=== PATIENT | female | born 1985 | race Caucasian/White ===

== ENCOUNTER 2016-06-30 10:21 | Emergency (ER) | payer OTHER ==
--- NOTE | 2016-06-30 15:07 | DIAGNOSTIC IMAGING REPORT ---
PROCEDURE: CT ABD/PELVIS WITH CONTRAST INDICATION: Left abdominal pain. Rectal bleeding. TECHNIQUE: 100 ml of Isovue 300 were injected intravenously and axial images were obtained of the entire abdomen and pelvis with sagittal and coronal reformations. COMPARISON: None. FINDINGS: ABDOMEN: Gallbladder, liver, spleen, pancreas, kidneys, and aorta are normal. Appendix is not clearly identified, but no evidence of inflammatory process. PELVIS: Uterus and adnexal structures are normal. No evidence of free fluid. IMPRESSION: 1. Negative CT abdomen and pelvis. 2. Findings discussed with Dr. Gildardo Rae. All CT scans at this facility use dose modulation, iterative reconstruction, and/or weight-based dosing when appropriate to reduce radiation dose to as low as reasonably achievable.
--- NOTE | 2016-06-30 15:55 | ED NURSING NOTES ---
Clinical Report - Nurses [facility] [address] [place] [address] 06/30/2016 10:29 Patient: FLACA SAUCEDO TRIAGE Acuity: LEVEL 3. Chief Complaint: BLOODY STOOLS and HEMATURIA. Alert. No acute distress. RICHARD COMA SCORE: Richard Coma Scale: 15- eyes open spontaneously (4); best verbal response- oriented x 4 (5); best motor response- obeys commands (6). --10:47 Gisell Lopez R.N. 10:38 06/30/16. BP: 126/73. HR: 102. RR: 12. O2 saturation: 100%. Temp: 98.4 F (oral). Pain level now: 12/16. --10:47 Giesll Lopez R.N. Weight: 48 kg stated. Height/Length: 61 inches Per Patient. BMI: 20. --10:47 Gisell Lopez R.N. Medications Zoloft Oral. --10:45 Gisell Lopez R.N. Medication/allergy information source: the patient. --10:47 Gisell Lopez R.N. Allergies No Known Drug Allergy. --10:45 Gisell Lopez R.N. History Arrived by private vehicle. Historian: patient. Unaccompanied. Onset. (2 weeks ago). ( Pt reports loose and bloody stools. She reports she saw a GI Dr 4 days and has a colonoscopy scheduled.). PAST MEDICAL HX: Last normal menstrual period was 2 weeks ago. Sexual history - sexually active. SOCIAL HX: Heavy tobacco smoker (cigarette)- 1 pack per day. Occasional alcohol use. No drug use. FALL RISK ASSESSMENT: Fall risk assessment completed. No fall risk identified. NUTRITIONAL RISK ASSESSMENT: The nutritional risk assessment revealed no deficiencies. FUNCTIONAL ASSESSMENT: Functional assessment: no impairments noted. LEARNING NEEDS ASSESSMENT: The learning needs assessment revealed no barriers. SKIN INTEGRITY ASSESSMENT: Skin integrity risk assessment completed. No skin integrity risk identified. --10:47 Gisell Lopez R.N. PROBLEMS: Depression. --10:46 Gisell Lopez R.N. ADDITIONAL SURGERIES: Cyst removal. Dilatation & Curettage. Tonsillectomy. Tubal Ligation. --10:46 Gisell Lopez R.N. Assessment GENERAL / NEURO / PSYCH: Alert. Oriented X 4. Appears in no acute distress. Patient appears calm and cooperative. RESPIRATORY: Respirations not labored. CVS: Capillary refill less than 2 seconds. GI / : Abdomen soft. SKIN: Mucous membranes are pink. Skin is warm and dry. --10:47 Gisell Lopez R.N. Interventions ID band on patient. To treatment room. --10:47 Gisell Lopez R.N. PHYSICAL ASSESSMENT 10:39 06/30/16. Ambulatory to room. GENERAL / NEURO / PSYCH: Alert. Oriented X 4. Appears in no acute distress. HEENT: Pupils equal, round and reactive to light. No facial asymmetry noted. Mucous membranes are pink. RESPIRATORY: Respirations not labored. CVS: Capillary refill less than 2 seconds. Pulses within normal limits. GI / : Abdomen soft. SKIN: Skin intact. Skin is warm and dry. Normal skin turgor. --10:39 Gisell Lopez R.N. NURSING PROGRESS NOTES 10:39 06/30/16. Patient gowned. Two patient identifiers checked. Call light placed in reach. Side rails up x 1. Bed placed in lowest position. Brakes of bed on. Patient ready for evaluation- chart flagged and ED physician notified. --10:39 Gsiell Lopez R.N. late entry - 10:40. Checked patient name and birthdate: patient confirmed. Instructions provided to collect clean catch urine and patient verbalized understanding. Clean catch urine collected with return of damon-colored clear urine; sample sent to lab for urinalysis. Specimen labeled in the presence of the patient. --11:19 Gisell Lopez R.N. 11:46 06/30/2016 Site #1 started via IV in the left antecubital space with an 20g angiocath, with aseptic technique and good blood return; one attempt. Blood drawn: rainbow set. Labeled in the presence of the patient and sent to the lab. Saline lock flushed with 10 mL saline. --11:46 Gisell Lopez R.N. 12:51 06/30/16. BP: 122/79. HR: 93. RR: 12. O2 saturation: 100%. Temp: 98.7 F (oral). --12:52 Gisell Lopez R.N. 16:10 06/30/2016 Site #1 removed upon discharge. Catheter intact. Manual pressure and bandage applied. --16:15 Gisell Lopez R.N. DISPOSITION / DISCHARGE Departure time: 16:10 Jun 30 2016. Condition at departure: improved and stable. No learning barriers present. Discharge instructions provided and reviewed with the patient. Reviewed medication(s) side effects, precautions and dosing information. Prescription(s) given to the patient. Patient verbalized understanding. Written instructions provided in Slovak. The patient was discharged by the physician. She was discharged home and accompanied by gas plant repairer. She left the Emergency Department ambulatory and via private vehicle. Repair Servicer driving. --16:14 Gisell Lopez R.N. 16:13 06/30/16. BP: 106/60. HR: 93. RR: 12. O2 saturation: 100%. Temp: 98.3 F (oral). Pain level now: 0/10. --16:14 Gisell Lopez R.N. Locked/Released at 06/30/2016 16:16 by Gisell Lopez R.N.
--- NOTE | 2016-06-30 15:55 | ED CLINICAL REPORT ---
Clinical Report - Physicians/Mid Levels [facility] [address] [place] [address] 06/30/2016 10:29 Patient: FLACA SAUCEDO Time Seen: 10:59 Jun 30 2016. Arrived- By private vehicle. Historian- patient. CPT: ER phys charges level 4 (#[id number]). HISTORY OF PRESENT ILLNESS Chief Complaint: RECTAL BLEEDING. blood in urine. This started about 2 weeks FIRST ASSIST and has been moderate. (patient's had bloody stool for 2 weeks. She saw GI physician 4 days ago and has a colonoscopy scheduled for the future. Is on no blood thinning medications. The patient notes she has had loose diarrheal stools for 2 weeks and no solid stools. She is here today because she notes that she is now passing a lot more blood than before and has seen some blood in her urine with some left flank pain. She also notes that there is something pushing down on the roof of the vagina and that it feels like a mass that is sometimes protruding partially from the rectum.). Is still present. No vomiting. She has had diarrhea. She has had moderate abdominal pain (left flank.). The pain is described as located in the epigastrium, LUQ, suprapubic region and LLQ. (Eating seems to cause more pain.). Similar symptoms previously: None. Recent medical care: The patient was seen recently at another facility in the office (4 days ago: GI). Seen for similar symptoms. Diagnosis: unknown. ( scheduled for scope.). REVIEW OF SYSTEMS The patient has had weakness, (due to low po intake.). No dizziness, fainting episodes, abnormal bleeding, vaginal discharge or fever. No sore throat, epistaxis, cough, difficulty breathing or chest pain. No chills. No complaint of rectal foreign body. The patient has had no rectal intercourse. Denies current . The patient has had hematuria. Colonoscopy is scheduled for July 09. All systems otherwise negative, except as recorded above. PAST HISTORY Depression. --10:46 Gisell Lopez R.N. ADDITIONAL SURGERIES: Cyst removal. Dilatation & Curettage. Tonsillectomy. Tubal Ligation. SOCIAL HISTORY Heavy tobacco smoker (cigarette)- 1 pack per day. Occasional alcohol use. No drug use. ADDITIONAL NOTES The nursing notes have been reviewed. PHYSICAL EXAM Vital Signs: 06/30/2016 10:38 BP: 126/73. HR: 102. RR: 12. O2 saturation: 100%. Temp: 98.4 F. Pain level now: 7/10. Appearance: Alert. No acute distress. Anxious. Eyes: Pupils equal, round and reactive to light. Eyes normal inspection. No pale conjunctivae. ENT: Ears normal. Nose normal. Pharynx normal. Neck: Normal inspection. Neck supple. CVS: Normal heart rate and rhythm. Heart sounds normal. Pulses normal. Respiratory: No respiratory distress. Breath sounds normal. Abdomen: Soft and nontender. Bowel sounds normal. No mass. Back: Normal inspection. : Normal external exam. Speculum exam normal. No vaginal bleeding or discharge. Bimanual exam normal. No tenderness present on bimanual exam. (Pt does have a mild cystocele when she bears down.). Rectal: Moderately tender digital exam. Abnormal digital exam: moderate tenderness; internal hemorrhoids. Skin: Skin warm. Normal skin color. No rash. Extremities: Extremities exhibit normal ROM. No lower extremity edema. Neuro: Oriented X 3. No motor deficit. No sensory deficit. LABS, X-RAYS, AND EKG Laboratory Tests: UA-Culture if indicated: (STEPHANIE: 06/30/2016 10:40) ( MsgRcvd 06/30/2016 11:39) Final results Test Result Flag Units (Reference) URINE COLOR LAITH URINE APPEARANCE CLOUDY URINE GLUCOSE NEGATIVE (NEGATIVE) URINE BILIRUBIN ICTOTEST NEGATIVE (NEGATIVE) URINE KETONE TRACE (NEGATIVE) URINE SPECIFIC GRAVITY >= 1.030 (1.010-1.030) URINE PH 6.0 (5.0-8.0) URINE PROTEIN 1+ (NEGATIVE) URINE UROBILINOGEN 0.2 EU/dL (0.2-1.0) URINE NITRITE NEGATIVE (NEGATIVE) URINE BLOOD 3+ (NEGATIVE) URINE LEUK ESTERASE NEGATIVE (NEGATIVE) URINE RBC >100 (TNTC) rbc/hpf (0-1) URINE WBC 0-1 wbc/hpf (0-1) URINE EPITHELIAL CELLS 0-1 EPI/hpf (0-5) URINE BACTERIA TRACE (<1+) (NONE SEEN) URINE COMMENT CULT NOT INDICATED TRACE CALCIUM OXALATEURINE CULTURES ARE SET-UP BASED ON THE FOLLOWING CRITERIA:POSITIVE NITRITEPOSITIVE LEUKOCYTE ESTERASEGREATER THAN 10 WHITE BLOOD CELLSMODERATE (2+) OR GREATER BACTERIA Urine: (STEPHANIE: 06/30/2016 10:40) ( [facility] 06/30/2016 11:43) Final results Test Result Flag Units (Reference) URINE NEGATIVE CBC w Diff: (STEPHANIE: 06/30/2016 11:40) ( [facility] 06/30/2016 11:55) Final results Test Result Flag Units (Reference) WHITE BLOOD COUNT 8.5 K/uL (4.5-11.5) RED BLOOD COUNT 4.04 M/uL (4.00-5.20) HEMOGLOBIN 12.6 gm/dL (12.0-16.0) HEMATOCRIT 37.5 % (36.0-46.0) MEAN CELL VOLUME 93 fL (80-100) MEAN CORPUSCULAR HGB 31 pg (26-34) MEAN CORPUSCULAR HGB CONC 34 g/dL (31-37) RED CELL DISTRIBUTION WIDTH 12.7 % (11.6-14.8) PLATELET COUNT 209 K/uL (150-400) NEUTROPHIL % 76.2 H % (50-75) LYMPH % 18.2 L % (25-40) MONO % 4.7 % (3-14) EOSINOPHIL % 0.6 % (0-4) BASOPHIL % 0.3 % (0-2) Urine Drug Screen: (STEPHANIE: 06/30/2016 10:40) ( [facility] 06/30/2016 12:09) Final results Test Result Flag Units (Reference) AMPHETAMINE/METHAMPHETAMINE POSITIVE H (NEGATIVE) QNS FOR GC/MS CONFIRMATION. BARBITURATE NEGATIVE (NEGATIVE) BENZODIAZEPINE NEGATIVE (NEGATIVE) CANNABINOID NEGATIVE (NEGATIVE) COCAINE NEGATIVE (NEGATIVE) ECSTASY POSITIVE H (NEGATIVE) METHADONE NEGATIVE (NEGATIVE) OPIATE NEGATIVE (NEGATIVE) The urine drug screen is a qualitative screening test fordrug overdose and abuse. All screen results should beconsidered as presumptive.Drugs screened for are as follows:BenzodiazepinesCocaineAmphetamines/MetamphetaminesTHC (Tetrahydrocannabinol)OpiatesBarbituratesEcstasyMethadonePositive results are unconfirmed. For confirmation, notifythe lab for the specimen to be sent to the reference lab.All confirmations must be performed by a differentmethodology.The ingestion of natural herbal and plant productscontaining Ephedra/Ephedra metabolites can produce in urineone or more substances capable of cross reacting withamphetamine/methamphetamine immunoassays. These testsprovide a preliminary result only. A more specificalternative chemical method must be used to obtain aconfirmed analytical result. CMP: (STEPHANIE: 06/30/2016 11:40) ( MsgRcvd 06/30/2016 12:09) Final results Test Result Flag Units (Reference) GLUCOSE 99 mg/dL (70-110) BUN 10 mg/dL (7-18) CREATININE 0.7 mg/dL (0.6-1.3) Estimated GFR >60 mL/min Estimated GFR- >60 mL/min Note: Persistent reduction over 3 months in eGFR<60 mL/min/1.73 m2 defines CKD. Patients with eGFR values>=60 mL/min/1.73 m2 may also have CKD if evidence ofpersistent proteinuria. Additional information may be foundat www.kidney.org. SODIUM 141 mmol/L (136-145) POTASSIUM 3.1 L mmol/L (3.5-5.1) CHLORIDE 102 mmol/L (98-107) CARBON DIOXIDE 28 mmol/L (21-32) CALCIUM 8.6 mg/dL (8.5-10.1) TOTAL PROTEIN 7.1 g/dL (6.4-8.2) ALBUMIN 3.5 g/dL (3.3-5.0) BILIRUBIN, TOTAL 0.2 mg/dL (0.0-1.0) ALKALINE PHOSPHATASE 56 U/L (46-116) AST (SGOT) 19 U/L (15-37) ALT (SGPT) 26 U/L (12-78) . PROGRESS AND PROCEDURES Course of Care: 13:23 06/30/16. Staff have searched the hospital for anasdcsope and cannot find one. Patient/family counseled. Disposition: Discharged. Condition: stable. CLINICAL IMPRESSION Abdominal pain with bloody diarrhea Hematuria. INSTRUCTIONS Drink plenty of fluids. (immodium as needed.). Warnings: Further evaluation is necessary. GENERAL WARNINGS: Return or contact your physician immediately if your condition worsens or changes unexpectedly, if not improving as expected, or if other problems arise. Prescription Medications: Hydrocodone/APAP 5mg/325mg: take 1 to 2 orally every 6 hours as needed for pain. Dispense fifteen (15). No refills. Follow-up: Follow up with your doctor in one week. Call for an appointment. Reason for referral: To follow up the blood in the urine and the cystocele. Follow up with a power manager in one week as scheduled. Understanding of the discharge instructions verbalized by patient and family. Discharge instructions reviewed with and understanding was verbalized by human resource officer. (Electronically signed by Gildardo Rae MD 06/30/2016 18:19)
--- NOTE | 2016-06-30 15:55 | ED ORDER SUMMARY ---
..... Patient: FLACA SAUCEDO OrderSheet [facility] VisitID: [id number] [place] [address] 30y, F Registration Date/Time: 06/30/2016 ORDER SHEET Weight: 48.0 kg (stated) Allergies: No Known Drug Allergy GENERAL ORDERS: UA-Culture if indicated Urgent (11:20 06/30/2016 MWinterer R.N. per protocol) (Ack 11:21 LMuller) (11:26 MWinterer R.N.) - (anascope set-up please.) (11:35 06/30/2016 Lyndon DE LA CRUZ) (Ack 11:36 MWinterer R.N.) (12:55 MWinterer R.N.) Urine Urgent (11:35 06/30/2016 Lyndon DE LA CRUZ) (Ack 11:36 LMuller) (11:36 LMuller) Urine Drug Screen Urgent (11:35 06/30/2016 Lyndon DE LA CRUZ) (Ack 11:36 LMuller) (11:36 LMuller) CBC w Diff Urgent (11:35 06/30/2016 Lyndon DE LA CRUZ) (Ack 11:36 LMuller) (11:46 MWinterer R.N.) CMP Urgent (11:35 06/30/2016 Lyndon DE LA CRUZ) (Ack 11:36 LMuller) (11:46 MWinterer R.N.) CT Abd/Pel w Cont (No) (N/A) Urgent (13:23 06/30/2016 Lyndon DE LA CRUZ) (Ack 13:23 LMuller) (14:58 MWinterer R.N.) MEDICATION ORDERS: IV FLUIDS: IV Saline Lock (11:35 06/30/2016 Lyndon DE LA CRUZ) (Ack 11:36 MWinterer R.N.) (11:47 MWinterer R.N.) ORDER SHEET NOTES: [Electronically signed by Gisell Lopez R.N. (16:16 06/30/2016)] [Electronically signed by Gildardo Rae MD (18:19 06/30/2016)] [Electronically locked/signed by Gisell Lopez R.N. (16:16 06/30/2016)]
--- NOTE | 2016-06-30 15:55 | ED ORDER SUMMARY ---
..... Patient: FLACA SAUCEDO OrderSheet [facility] VisitID: [id number] [place] [address] 30y, F Registration Date/Time: 06/30/2016 ORDER SHEET Weight: 48.0 kg (stated) Allergies: No Known Drug Allergy GENERAL ORDERS: UA-Culture if indicated Urgent (11:20 06/30/2016 MWinterer R.N. per protocol) (Ack 11:21 LMuller) (11:26 MWinterer R.N.) - (anascope set-up please.) (11:35 06/30/2016 Lyndon DE LA CRUZ) (Ack 11:36 MWinterer R.N.) (12:55 MWinterer R.N.) Urine Urgent (11:35 06/30/2016 Lyndon DE LA CRUZ) (Ack 11:36 LMuller) (11:36 LMuller) Urine Drug Screen Urgent (11:35 06/30/2016 Lyndon DE LA CRUZ) (Ack 11:36 LMuller) (11:36 LMuller) CBC w Diff Urgent (11:35 06/30/2016 Lyndon DE LA CRUZ) (Ack 11:36 LMuller) (11:46 MWinterer R.N.) CMP Urgent (11:35 06/30/2016 Lyndon DE LA CRUZ) (Ack 11:36 LMuller) (11:46 MWinterer R.N.) CT Abd/Pel w Cont (No) (N/A) Urgent (13:23 06/30/2016 Lyndon DE LA CRUZ) (Ack 13:23 LMuller) (14:58 MWinterer R.N.) MEDICATION ORDERS: IV FLUIDS: IV Saline Lock (11:35 06/30/2016 Lyndon DE LA CRUZ) (Ack 11:36 MWinterer R.N.) (11:47 MWinterer R.N.) ORDER SHEET NOTES: [Electronically signed by Gisell Lopez R.N. (16:16 06/30/2016)] [Electronically signed by Gildardo Rae MD (18:19 06/30/2016)] [Electronically locked/signed by Gisell Lopez R.N. (16:16 06/30/2016)]
--- NOTE | 2016-06-30 15:55 | ED CLINICAL REPORT ---
Clinical Report - Physicians/Mid Levels [facility] [address] [place] [address] 06/30/2016 10:29 Patient: FLACA SAUCEDO Time Seen: 10:59 Jun 30 2016. Arrived- By private vehicle. Historian- patient. CPT: ER phys charges level 4 (#[id number]). HISTORY OF PRESENT ILLNESS Chief Complaint: RECTAL BLEEDING. 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 (patient's had bloody stool for 2 weeks. She saw GI physician 4 days ago and has a colonoscopy scheduled for the future. Is on no blood thinning medications. The patient notes she has had loose diarrheal stools for 2 weeks and no solid stools. She is here today because she notes that she is now passing a lot more blood than before and has seen some blood in her urine with some left flank pain. She also notes that there is something pushing down on the roof of the vagina and that it feels like a mass that is sometimes protruding partially from the rectum.). Is still present. No vomiting. She has had diarrhea. She has had moderate abdominal pain (left flank.). The pain is described as located in the epigastrium, LUQ, suprapubic region and LLQ. (Eating seems to cause more pain.). Similar symptoms previously: None. Recent medical care: The patient was seen recently at another facility in the office (4 days ago: GI). Seen for similar symptoms. Diagnosis: unknown. ( scheduled for scope.). REVIEW OF SYSTEMS The patient has had weakness, (due to low po intake.). No dizziness, fainting episodes, abnormal bleeding, vaginal discharge or fever. No sore throat, epistaxis, cough, difficulty breathing or chest pain. No chills. No complaint of rectal foreign body. The patient has had no rectal intercourse. Denies current . The patient has had hematuria. Colonoscopy is scheduled for July 09. All systems otherwise negative, except as recorded above. PAST HISTORY Depression. --10:46 Gisell Lopez R.N. ADDITIONAL SURGERIES: Cyst removal. Dilatation & Curettage. Tonsillectomy. Tubal Ligation. SOCIAL HISTORY Heavy tobacco smoker (cigarette)- 1 pack per day. Occasional alcohol use. No drug use. ADDITIONAL NOTES The nursing notes have been reviewed. PHYSICAL EXAM Vital Signs: 06/30/2016 10:38 BP: 126/73. HR: 102. RR: 12. O2 saturation: 100%. Temp: 98.4 F. Pain level now: 7/10. Appearance: Alert. No acute distress. Anxious. Eyes: Pupils equal, round and reactive to light. Eyes normal inspection. No pale conjunctivae. ENT: Ears normal. Nose normal. Pharynx normal. Neck: Normal inspection. Neck supple. CVS: Normal heart rate and rhythm. Heart sounds normal. Pulses normal. Respiratory: No respiratory distress. Breath sounds normal. Abdomen: Soft and nontender. Bowel sounds normal. No mass. Back: Normal inspection. : Normal external exam. Speculum exam normal. No vaginal bleeding or discharge. Bimanual exam normal. No tenderness present on bimanual exam. (Pt does have a mild cystocele when she bears down.). Rectal: Moderately tender digital exam. Abnormal digital exam: moderate tenderness; internal hemorrhoids. Skin: Skin warm. Normal skin color. No rash. Extremities: Extremities exhibit normal ROM. No lower extremity edema. Neuro: Oriented X 3. No motor deficit. No sensory deficit. LABS, X-RAYS, AND EKG Laboratory Tests: UA-Culture if indicated: (STEPHANIE: 06/30/2016 10:40) ( MsgRcvd 06/30/2016 11:39) Final results Test Result Flag Units (Reference) URINE COLOR LAITH URINE APPEARANCE CLOUDY URINE GLUCOSE NEGATIVE (NEGATIVE) URINE BILIRUBIN ICTOTEST NEGATIVE (NEGATIVE) URINE KETONE TRACE (NEGATIVE) URINE SPECIFIC GRAVITY >= 1.030 (1.010-1.030) URINE PH 6.0 (5.0-8.0) URINE PROTEIN 1+ (NEGATIVE) URINE UROBILINOGEN 0.2 EU/dL (0.2-1.0) URINE NITRITE NEGATIVE (NEGATIVE) URINE BLOOD 3+ (NEGATIVE) URINE LEUK ESTERASE NEGATIVE (NEGATIVE) URINE RBC >100 (TNTC) rbc/hpf (0-1) URINE WBC 0-1 wbc/hpf (0-1) URINE EPITHELIAL CELLS 0-1 EPI/hpf (0-5) URINE BACTERIA TRACE (<1+) (NONE SEEN) URINE COMMENT CULT NOT INDICATED TRACE CALCIUM OXALATEURINE CULTURES ARE SET-UP BASED ON THE FOLLOWING CRITERIA:POSITIVE NITRITEPOSITIVE LEUKOCYTE ESTERASEGREATER THAN 10 WHITE BLOOD CELLSMODERATE (2+) OR GREATER BACTERIA Urine: (STEPHANIE: 06/30/2016 10:40) ( [facility] 06/30/2016 11:43) Final results Test Result Flag Units (Reference) URINE NEGATIVE CBC w Diff: (STEPHANIE: 06/30/2016 11:40) ( [facility] 06/30/2016 11:55) Final results Test Result Flag Units (Reference) WHITE BLOOD COUNT 8.5 K/uL (4.5-11.5) RED BLOOD COUNT 4.04 M/uL (4.00-5.20) HEMOGLOBIN 12.6 gm/dL (12.0-16.0) HEMATOCRIT 37.5 % (36.0-46.0) MEAN CELL VOLUME 93 fL (80-100) MEAN CORPUSCULAR HGB 31 pg (26-34) MEAN CORPUSCULAR HGB CONC 34 g/dL (31-37) RED CELL DISTRIBUTION WIDTH 12.7 % (11.6-14.8) PLATELET COUNT 209 K/uL (150-400) NEUTROPHIL % 76.2 H % (50-75) LYMPH % 18.2 L % (25-40) MONO % 4.7 % (3-14) EOSINOPHIL % 0.6 % (0-4) BASOPHIL % 0.3 % (0-2) Urine Drug Screen: (STEPHANIE: 06/30/2016 10:40) ( [facility] 06/30/2016 12:09) Final results Test Result Flag Units (Reference) AMPHETAMINE/METHAMPHETAMINE POSITIVE H (NEGATIVE) QNS FOR GC/MS CONFIRMATION. BARBITURATE NEGATIVE (NEGATIVE) BENZODIAZEPINE NEGATIVE (NEGATIVE) CANNABINOID NEGATIVE (NEGATIVE) COCAINE NEGATIVE (NEGATIVE) ECSTASY POSITIVE H (NEGATIVE) METHADONE NEGATIVE (NEGATIVE) OPIATE NEGATIVE (NEGATIVE) The urine drug screen is a qualitative screening test fordrug overdose and abuse. All screen results should beconsidered as presumptive.Drugs screened for are as follows:BenzodiazepinesCocaineAmphetamines/MetamphetaminesTHC (Tetrahydrocannabinol)OpiatesBarbituratesEcstasyMethadonePositive results are unconfirmed. For confirmation, notifythe lab for the specimen to be sent to the reference lab.All confirmations must be performed by a differentmethodology.The ingestion of natural herbal and plant productscontaining Ephedra/Ephedra metabolites can produce in urineone or more substances capable of cross reacting withamphetamine/methamphetamine immunoassays. These testsprovide a preliminary result only. A more specificalternative chemical method must be used to obtain aconfirmed analytical result. CMP: (STEPHANIE: 06/30/2016 11:40) ( MsgRcvd 06/30/2016 12:09) Final results Test Result Flag Units (Reference) GLUCOSE 99 mg/dL (70-110) BUN 10 mg/dL (7-18) CREATININE 0.7 mg/dL (0.6-1.3) Estimated GFR >60 mL/min Estimated GFR- >60 mL/min Note: Persistent reduction over 3 months in eGFR<60 mL/min/1.73 m2 defines CKD. Patients with eGFR values>=60 mL/min/1.73 m2 may also have CKD if evidence ofpersistent proteinuria. Additional information may be foundat www.kidney.org. SODIUM 141 mmol/L (136-145) POTASSIUM 3.1 L mmol/L (3.5-5.1) CHLORIDE 102 mmol/L (98-107) CARBON DIOXIDE 28 mmol/L (21-32) CALCIUM 8.6 mg/dL (8.5-10.1) TOTAL PROTEIN 7.1 g/dL (6.4-8.2) ALBUMIN 3.5 g/dL (3.3-5.0) BILIRUBIN, TOTAL 0.2 mg/dL (0.0-1.0) ALKALINE PHOSPHATASE 56 U/L (46-116) AST (SGOT) 19 U/L (15-37) ALT (SGPT) 26 U/L (12-78) . PROGRESS AND PROCEDURES Course of Care: 13:23 06/30/16. Staff have searched the hospital for anasdcsope and cannot find one. Patient/family counseled. Disposition: Discharged. Condition: stable. CLINICAL IMPRESSION Abdominal pain with bloody diarrhea Hematuria. INSTRUCTIONS Drink plenty of fluids. (immodium as needed.). Warnings: Further evaluation is necessary. GENERAL WARNINGS: Return or contact your physician immediately if your condition worsens or changes unexpectedly, if not improving as expected, or if other problems arise. Prescription Medications: Hydrocodone/APAP 5mg/325mg: take 1 to 2 orally every 6 hours as needed for pain. Dispense fifteen (15). No refills. Follow-up: Follow up with your doctor in one week. Call for an appointment. Reason for referral: To follow up the blood in the urine and the cystocele. Follow up with a re etcher in one week as scheduled. Understanding of the discharge instructions verbalized by patient and family. Discharge instructions reviewed with and understanding was verbalized by pacs administrator. (Electronically signed by Gildardo Rae MD 06/30/2016 18:19)
--- NOTE | 2016-06-30 18:19 | ED DISCHARGE INSTRUCTIONS ---
Patient: FLACA SAUCEDO General Instructions [facility] VisitID: [id number] [place] [address] 30y, F Registration Date/Time: 06/30/2016 Abdominal pain with bloody diarrhea Hematuria. INSTRUCTIONS Drink plenty of fluids. (immodium as needed.). Warnings: Further evaluation is necessary. GENERAL WARNINGS: Return or contact your physician immediately if your condition worsens or changes unexpectedly, if not improving as expected, or if other problems arise. Prescription Medications: Hydrocodone/APAP 5mg/325mg: take 1 to 2 orally every 6 hours as needed for pain. Dispense fifteen (15). No refills. Follow-up: Follow up with your doctor in one week. Call for an appointment. Reason for referral: To follow up the blood in the urine and the cystocele. Follow up with a bacteriology technician in one week as scheduled. Understanding of the discharge instructions verbalized by patient and family. Discharge instructions reviewed with and understanding was verbalized by dosimetrist. (Electronically signed by Gildardo Rae MD 06/30/2016 18:19)
--- NOTE | 2016-06-30 18:19 | ED MAR SUMMARY ---
..... Medication Administration Record [facility] [address], [place] [id number] Patient: FLACA SAUCEDO Visit ID: [id number] 30y, F Weight: 48.0 kg Height/Length: 61 in BMI: 20 ALLERGIES: No Known Drug Allergy
--- NOTE | 2016-06-30 18:19 | ED MED RECONCILIATION SUMMARY ---
Patient: FLACA SAUCEDO Medication Reconciliation Report [facility] VisitID: [id number] [address] [place] [address] 30y, F Registration Date/Time: 06/30/2016 Weight: 48.0 kg Height/Length: 61 in. BMI: 20.0 ALLERGIES: No Known Drug Allergy The patient's Home Medications are listed below: THE FOLLOWING MEDICATIONS NEED TO BE RECONCILED: Zoloft Oral The source(s) of the original Home Medication information: patient The following Medications were given to the patient in the Emergency Department: None. The following Medications were prescribed to the patient: Hydrocodone/APAP 5mg/325mg: take 1 to 2 orally every 6 hours as needed for pain. Dispense fifteen (15). No refills. -- Gildardo Rae MD
--- NOTE | 2016-06-30 18:19 | ED MAR SUMMARY ---
..... Medication Administration Record [facility] [address], [place] [id number] Patient: FLACA SAUCEDO Visit ID: [id number] 30y, F Weight: 48.0 kg Height/Length: 61 in BMI: 20 ALLERGIES: No Known Drug Allergy
--- NOTE | 2016-06-30 18:19 | ED MED RECONCILIATION SUMMARY ---
Patient: FLACA SAUCEDO Medication Reconciliation Report [facility] VisitID: [id number] [address] [place] [address] 30y, F Registration Date/Time: 06/30/2016 Weight: 48.0 kg Height/Length: 61 in. BMI: 20.0 ALLERGIES: No Known Drug Allergy The patient's Home Medications are listed below: THE FOLLOWING MEDICATIONS NEED TO BE RECONCILED: Zoloft Oral The source(s) of the original Home Medication information: patient The following Medications were given to the patient in the Emergency Department: None. The following Medications were prescribed to the patient: Hydrocodone/APAP 5mg/325mg: take 1 to 2 orally every 6 hours as needed for pain. Dispense fifteen (15). No refills. -- Gildardo Rae MD
--- NOTE | 2016-06-30 18:19 | ED DISCHARGE INSTRUCTIONS ---
Patient: FLACA SAUCEDO General Instructions [facility] VisitID: [id number] [place] [address] 30y, F Registration Date/Time: 06/30/2016 Abdominal pain with bloody diarrhea Hematuria. INSTRUCTIONS Drink plenty of fluids. (immodium as needed.). Warnings: Further evaluation is necessary. GENERAL WARNINGS: Return or contact your physician immediately if your condition worsens or changes unexpectedly, if not improving as expected, or if other problems arise. Prescription Medications: Hydrocodone/APAP 5mg/325mg: take 1 to 2 orally every 6 hours as needed for pain. Dispense fifteen (15). No refills. Follow-up: Follow up with your doctor in one week. Call for an appointment. Reason for referral: To follow up the blood in the urine and the cystocele. Follow up with a hydro electric station operator in one week as scheduled. Understanding of the discharge instructions verbalized by patient and family. Discharge instructions reviewed with and understanding was verbalized by aitchbone breaker. (Electronically signed by Gildardo Rae MD 06/30/2016 18:19)
== END 2016-06-30 16:10 | disposition home or self-care (01) ==
LOC: ED SRH 10:21
DX: K92.1 Melena (principal); R10.13 Epigastric pain; R10.12 Left upper quadrant pain; R10.32 Left lower quadrant pain; R31.9 Hematuria, unspecified; F17.210 Nicotine dependence, cigarettes, uncomplicated
CPT/HCPCS: 90004; 90100; 92760; 92761; 92762; 92763; 92764; 92765; 92766; 92767; 93070; 95059